=== PATIENT | female | born 1985 | race Caucasian/White ===

== ENCOUNTER 2020-02-13 13:57 | Emergency (ER) | payer BC ==
[~2020-02-13] VITALS: Ht 162.6 cm; Wt 70.3 kg
[~2020-02-13 13:57] MED LIST: IBUPROFEN 200200 M1 PO
[2020-02-13 14:38] LABS: ABSOLUTE NEUTROPHILS 4.4 thou/uL (1.4-8.2); BASOPHILS 1.1 % (0.0-2.0); EOSINOPHILS 2.3 % (0.0-3.0); HEMATOCRIT 36.2 % (37.0-47.0); LYMPHOCYTES 29.1 % (24.0-44.0); MCH 32.3 pg (26.0-34.0); MCHC 33.2 g/dL (28.0-37.0); MCV 97.3 fL (80.0-100.0); MONOCYTES 6.1 % (1.0-8.0); PLATELET COUNT 321 thou/uL (150-400); POLYS 61.4 % (36.0-66.0); RBC 3.73 mil/uL (4.20-5.00); RDW 12.7 % (10.5-14.5); WBC 7.1 thou/uL (4.0-11.0)
[2020-02-13 14:53] LABS: ANION GAP 7 mmol/L (7-16); BUN 16 mg/dL (7-18); CALCIUM 8.5 mg/dL (8.5-10.1); CHLORIDE 98 mmol/L (98-107); CO2 28 mmol/L (21-32); CREATININE 0.8 mg/dL (0.6-1.0); GLUCOSE 97 mg/dL (74-106); POTASSIUM 3.8 mmol/L (3.5-5.1); SODIUM 133 mmol/L (136-145)
[2020-02-13 15:03] LABS: SGOT 15 U/L (15-37); SGPT 26 U/L (30-65); TOTAL BILIRUBIN 0.5 mg/dL (<0.1-1.0); TOTAL PROTEIN 7.7 g/dL (6.4-8.2); TROPONIN-I <0.06 ng/mL (<0.06)
[2020-02-13 15:40] VITALS: BP 115/79
--- NOTE | 2020-02-14 07:59 | EKG ---
[facility] [place] [address] ELECTROCARDIOGRAM REPORT Name: DEDRICK ELKINS Room #: DEP [facility]#: [id number] Admission: 02/13/20 Attend Phys: Discharge: 02/13/20 Date of : 81 Report #: [id number] THIS REPORT FOR: cc: RADHA - Nargis family physician/PCP RADHA - Nargis family physician/PCP Ned Feldman MD [facility] THIS REPORT FOR: //name// [facility] ED Test Date: 2020-02-13 Test Time: 14:07:45 Pat Name: DEDRICK ELKINS Department: Room: Gender: Bench Assembly Inspector: [facility] : 1985 Requested By: Heena Sinha Order Number: [id number] MD: Ned Feldman Measurements Intervals Parks Rate: 91 P: 20 CT: 142 QRS: 34 QRSD: 104 T: 19 QT: 370 QTc: 456 Interpretive Statements Sinus rhythm Normal tracing No previous ECG available for comparison Electronically Signed On 02-14-2020 7:57:37 CDT by Ned Feldman [email or web address] <ELECTRONICALLY SIGNED> By: Ned Feldman MD, FAC 02/14/20 0757 06 Ned Feldman MD, [facility] /EPI
== END 2020-02-13 15:48 | disposition home or self-care (01) ==
LOC: ER 13:57
PROVIDERS: Physician Assistant
DX: R07.89 Other chest pain (principal); F41.9 Anxiety disorder, unspecified; Z79.899 Other long term (current) drug therapy; Z91.018 Allergy to other foods

== ENCOUNTER → 2020-12-09 | Outpatient (CLI) | payer OTHER | LOC: CAT 16:20 | PROVIDERS: ATTEND Nurse Practitioner | DX: Z13.6 Encounter for screening for cardiovascular disorders (principal); I25.10 Atherosclerotic heart disease of native coronary artery without angina pectoris; E78.00 Pure hypercholesterolemia, unspecified ==